=== PATIENT | male | born 1980 | race African-American/Black ===

== ENCOUNTER 2020-11-06 21:00 | Emergency (ER) | payer MEDICARE, MEDICAID ==
[~2020-11-06] VITALS: Ht 177.8 cm; Wt 95.3 kg
[2020-11-06 22:14] LABS: Basophils # (auto) 0 10 ^3/uL (0-0.2); Eosinophils # (auto) 0 10 ^3/uL (0-0.8); Eosinophils % (auto) 0.3 % (0.0-7.0); Monocytes # (auto) 0.4 10 ^3/uL (0-1.3); Red Cell Distribution Width 15.3 % (11.8-14.3)
[2020-11-06 22:15] LABS: Basophils % (auto) 0.5 % (0.0-2.0); Hematocrit 37.9 % (41.0-53.0); Hemoglobin 13.4 g/dL (13.5-17.5); Lymphocytes # (auto) 0.6 10 ^3/uL (0.4-5.4); Lymphocytes % (auto) 10.1 % (10.0-50.0); Mean Corpuscular Hgb Conc. 35.3 g/dL (32.0-36.0); Neutrophils # (auto) 4.9 10 ^3/uL (1.6-8.6); Neutrophils % (auto) 82.1 % (37.0-80.0); Platelet Count (auto) 35 10^3/uL (140-450); Red Blood Cells 3.71 10^6/uL (4.5-5.90)
[2020-11-06 22:30] LABS: Albumin 4.5 g/dL (3.4-5.0); Calcium 8.9 mg/dL (8.5-10.1); Potassium 3.2 mmol/L (3.5-5.1)
[2020-11-06 22:33] LABS: BUN/Creatinine Ratio 8.7; Bilirubin, Total 1.3 mg/dL (0.2-1.0)
[2020-11-07] MEDS ORDERED: levETIRAcetam 500 MG/5ML INJ IV ONE (00:16)
[2020-11-07 02:00] VITALS: BP 124/83
== END 2020-11-07 02:46 | disposition home or self-care (01) ==
LOC: EDBD 21:00 → ER 21:05
DX: G40.909 Epilepsy, unspecified, not intractable, without status epilepticus (principal); G89.29 Other chronic pain; M54.9 Dorsalgia, unspecified; Z91.14 Patient's other noncompliance with medication regimen
CPT/HCPCS: 36415; 73501; 80053; 85025; 93005; 96365; 99285; J1953; J7060